=== PATIENT | male | born 1940 | race Caucasian/White ===

== ENCOUNTER → 2017-08-23 | Outpatient (CLI) | payer MEDICARE, BC ==
[~2017-08-23] MED LIST: ASPI81EC; META800 PO; NAPR500 PO; OXYACE5T PO; SIMV20
== END ==
LOC: LAB 13:52 → LAB SHORT 13:52
DX: L08.9 Local infection of the skin and subcutaneous tissue, unspecified (principal); L53.8 Other specified erythematous conditions; R20.8 Other disturbances of skin sensation; D48.5 Neoplasm of uncertain behavior of skin; L29.8 Other pruritus
CPT/HCPCS: 87529

== ENCOUNTER 2018-05-02 07:35 | Day surgery (SDC) | payer MEDICARE, BC ==
[~2018-05-02] VITALS: Ht 175.3 cm; Wt 76.4 kg
[~2018-05-02 07:35] MED LIST changes: +Cialis20 MG PO; +EYE OMEGA ADVA1 EACH PO; +EYLEA2 MG/0.05 IO; +MULTI VITAMIN1 EACH PO; +Omeprazole20 M1 PO; +Prozac40 MG PO; +Rapaflo8 MG PO
--- NOTE | 2018-05-02 10:08 | NUR ---
05/02/18 1008 Denis Somers PT DENIES A DESIRE FOR ANYTHING TO DRINK IN STEP DOWN.
== END 2018-05-02 10:08 | disposition home or self-care (01) ==
LOC: ORSCSDS 07:35
PROVIDERS: Internal Medicine Gastroenterology
PROC: 0DBH8ZX Excision of Cecum, Via Natural or Artificial Opening Endoscopic, Diagnostic (ICD-10-PCS; principal; 2018-05-02 08:45)
PROC: 0DBK8ZX Excision of Ascending Colon, Via Natural or Artificial Opening Endoscopic, Diagnostic (ICD-10-PCS; principal; 2018-05-02 08:45)
DX: Z12.11 Encounter for screening for malignant neoplasm of colon (principal); Z86.010 Personal history of colon polyps; D12.2 Benign neoplasm of ascending colon; D12.0 Benign neoplasm of cecum; K57.30 Diverticulosis of large intestine without perforation or abscess without bleeding; E11.9 Type 2 diabetes mellitus without complications; I10 Essential (primary) hypertension; E78.5 Hyperlipidemia, unspecified; F17.210 Nicotine dependence, cigarettes, uncomplicated; Z79.899 Other long term (current) drug therapy
CPT/HCPCS: 82947; 88305; J7120

== ENCOUNTER → 2019-10-31 | Outpatient (CLI) | payer MEDICARE, BC ==
[2019-11-01 13:55] LABS: Stool Occult Bld Immuno 1 Negative (NEGATIVE)
== END | disposition home or self-care (01) ==
LOC: LAB 10:00 → LAB SHORT 10:00 → LAB FUT 10-27 15:25
PROVIDERS: Surgery
DX: R19.7 Diarrhea, unspecified (principal)
CPT/HCPCS: 82274; 87493

== ENCOUNTER → 2024-03-25 | Outpatient (CLI) | payer MEDICARE, BC | LOC: LAB SHORT 14:30 → LAB 14:30 | DX: L08.9 Local infection of the skin and subcutaneous tissue, unspecified (principal) | CPT/HCPCS: 87070; 87077; 87186; 87205 ==

== ENCOUNTER 2024-10-16 07:27 | Emergency (ER) | payer MEDICARE, BC ==
[~2024-10-16] VITALS: Ht 172.7 cm; Wt 77.1 kg
[2024-10-16 08:31] LABS: BASOPHILS ABSOLUTE AUTO 0.06 K/mm3 (0.00-0.23); BASOPHILS PERCENT AUTO 1 % (0-2); EOSINOPHILS ABSOLUTE AUTO 0.27 K/mm3 (0.00-0.68); EOSINOPHILS PERCENT AUTO 3 % (0-6); Hematocrit 43.1 % (37.0-53.0); Hemoglobin 14.4 g/dL (13.5-17.5); IMMATURE GRAN ABSOLUTE AUTO 0.03 K/mm3 (0.00-0.10); IMMATURE GRAN PERCENT AUTO 0 % (0-1); LYMPHOCYTES ABSOLUTE AUTO 1.98 K/mm3 (0.84-5.20); LYMPHOCYTES PERCENT AUTO 23 % (21-46); MONOCYTES ABSOLUTE AUTO 0.84 K/mm3 (0.16-1.47); MONOCYTES PERCENT AUTO 10 % (4-13); Mean Corpuscular HGB Conc 33.4 g/dL (31.5-36.5); Mean Corpuscular Volume 92 fL (80-100); NEUTROPHILS ABSOLUTE AUTO 5.53 K/mm3 (1.96-9.15); NEUTROPHILS PERCENT AUTO 64 % (41-73); NRBC ABSOLUTE 0.00 K/mm3 (0.00-0.02); NRBC Auto 0.0 /100 WBC (0.0-0.2); Platelet Count 247 K/mm3 (150-400); RDW Coefficient Variation 12.7 % (11.7-14.2); RDW Standard Deviation 42.9 fL (35.1-46.3)
[2024-10-16 08:56] LABS: Alanine Aminotransfer (ALT/SGP 22.0 U/L (12-78); Albumin, Blood 3.4 g/dL (3.4-5.0); Albumin/Globulin Ratio 1.0 (0.8-1.8); Anion Gap 8.0 mmol/L (3-11); Aspartate Aminotrans (AST/SGOT 20.0 U/L (12-37); Bilirubin, Total 0.4 mg/dL (0.1-1.0); Blood Urea Nitrogen 12.0 mg/dL (8-24); CO2, Blood 27.0 mmol/L (21-32); Calcium, Blood 8.3 mg/dL (8.5-10.1); Chloride, Blood 104.0 mmol/L (98-108); Creatinine, Blood 0.87 mg/dL (0.60-1.20); Globulin, Blood 3.5 g/dL (2.2-4.0); Glucose, Blood 104.0 mg/dL (70-99); Potassium, Blood 4.1 mmol/L (3.5-5.5); Sodium, Blood 135.0 mmol/L (136-145); Total Protein, Blood 6.9 g/dL (6.4-8.2)
[2024-10-16 10:52] VITALS: BP 153/64
== END 2024-10-16 10:55 | disposition home or self-care (01) ==
LOC: ER 07:27
PROVIDERS: Emergency Medicine
DX: Z91.81 History of falling (principal); Z87.891 Personal history of nicotine dependence; R53.83 Other fatigue
CPT/HCPCS: 70450; 80053; 84484; 85025; 93005; 93010; 99284-25